=== PATIENT | female | born 1995 | race American Indian/Alaskan Native ===

== ENCOUNTER 2017-08-06 21:55 | Emergency (ER) | payer SELFPAY ==
[2017-08-06 22:47] VITALS: BP 128/77
[2017-08-06 23:34] LABS: Basophils % (Auto) 0.7 % (0.0-1.8); Eosinophils # (Auto) 0.2 K/mm3 (0.0-0.4); Eosinophils % (Auto) 2.2 % (0.0-4.3); Hematocrit 36.2 % (30.3-42.9); Hemoglobin 11.8 gm/dl (10.1-14.3); Lymphocytes # (Auto) 2.4 K/mm3 (1.2-5.4); Lymphocytes % (Auto) 33.1 % (13.4-35.0); Mean Corpuscular HGB Conc 33 % (30-34); Mean Corpuscular Hemoglobin 28 pg (28-32); Mean Corpuscular Volume 86 fl (79-97); Monocytes # (Auto) 0.9 K/mm3 (0.0-0.8); Monocytes % (Auto) 12.4 % (0.0-7.3); Platelet Count 212 K/mm3 (140-440); Red Cell Distribution Width 13.8 % (13.2-15.2)
[2017-08-07 00:12] LABS: Amorphous Crystals,Urine 1+; Bacteria,Urine 1+ /HPF (Negative); Bilirubin,Urine NEG (Negative); Blood,Urine LG (Negative); Color,Urine Yellow (Yellow); Protein,Urine <15 mg/dL mg/dL (Negative); Urobilinogen,Urine < 2.0 mg/dL (<2.0)
[2017-08-07 00:17] LABS: WBC,Urine < 1.0 /HPF (0.0-6.0)
--- NOTE | 2017-08-07 02:36 | Ultrasound Report ---
FINAL REPORT PROCEDURE: US OB < = 14 WEEKS FETUS TECHNIQUE: Real-time transabdominal sonography of the uterus, placenta, amniotic fluid, adnexa, and fetus was performed with image documentation. Measurements were obtained to determine age/size. M-mode Doppler was used to document heartbeat. CPT 78542 HISTORY: COMPARISON: No prior studies are available for comparison. FINDINGS: CRL: 3.2 mm, which corresponds to a gestational age of: 6 weeks, 0 days. Yolk Sac: Normal. Embryonic Cardiac Activity: 1 3 7 beats per minute Gestational Sac: Normal. Amniotic fluid: Normal. Cervix: Normal. Right Ovary: Normal. Left Ovary: Normal. Estimated delivery date: 04/02/2018 Uterus and adnexa: Normal. IMPRESSION: Single live intrauterine gestation at approximately 6 weeks 0 days. EDC by US 04/02/2018
--- NOTE | 2017-08-07 02:38 | Ultrasound Report ---
FINAL REPORT PROCEDURE: US OB < = 14 WEEKS FETUS TECHNIQUE: Real-time transabdominal sonography of the uterus, placenta, amniotic fluid, adnexa, and fetus was performed with image documentation. Measurements were obtained to determine age/size. M-mode Doppler was used to document heartbeat. CPT 86504 HISTORY: COMPARISON: No prior studies are available for comparison. FINDINGS: CRL: 3.2 mm, which corresponds to a gestational age of: 6 weeks, 0 days. Yolk Sac: Normal. Embryonic Cardiac Activity: 1 3 7 beats per minute Gestational Sac: Normal. Amniotic fluid: Normal. Cervix: Normal. Right Ovary: Normal. Left Ovary: Normal. Estimated delivery date: 04/02/2018 Uterus and adnexa: Normal. IMPRESSION: Single live intrauterine gestation at approximately 6 weeks 0 days. EDC by US 04/02/2018
[2017-08-07] MEDS ORDERED: TYLENOL ONE ×2 (04:33→04:37)
[2017-08-07] MEDS ORDERED: TYLENOL PO ONE (04:39)
== END 2017-08-07 07:30 | disposition left against medical advice (07) ==
LOC: ED 21:55
DX: N93.9 Abnormal uterine and vaginal bleeding, unspecified (principal); Z53.21 Procedure and treatment not carried out due to patient leaving prior to being seen by health care provider
CPT/HCPCS: 36415; 76801; 76817; 81001; 84703; 85025; 86850; 86900; 86901